=== PATIENT | female | born 1995 ===

== ENCOUNTER 2021-11-25 14:03 | Outpatient (CLI) | payer OTHER | END 2021-11-25 15:45 | disposition home or self-care (01) | LOC: PRENATAL 14:03 | PROVIDERS: ATTEND Obstetrics & Gynecology Maternal & Fetal Medicine | DX: O35.0XX0 Maternal care for (suspected) central nervous system malformation in fetus, not applicable or unspecified (principal); O35.3XX0 Maternal care for (suspected) damage to fetus from viral disease in mother, not applicable or unspecified; O10.019 Pre-existing essential hypertension complicating pregnancy, unspecified trimester; Z3A.19 19 weeks gestation of pregnancy ==

== ENCOUNTER 2021-12-15 12:34 | Inpatient (IN) | payer OTHER ==
[~2021-12-15] VITALS: Ht 160 cm; Wt 119.3 kg
[2021-12-16] MEDS ORDERED: TOPROL XL50 M1 (08:52)
[2021-12-16] MEDS ORDERED: ADULT LOW DOSE81 M1 (08:53)
[2021-12-16] MEDS ORDERED: NIFEDIPINE ER30 M1 (08:53)
== END 2021-12-17 12:27 | disposition home or self-care (01) | DRG 833 ==
LOC: OBS/DEL 12:34 → LDR 16:20 → OB/GYN 12-16 10:04
PROVIDERS: ADMIT Obstetrics & Gynecology; ATTEND Obstetrics & Gynecology
PROC: 4A1HXCZ Monitoring of Products of Conception, Cardiac Rate, External Approach (ICD-10-PCS; principal; 2021-12-15)
DX: O16.2 Unspecified maternal hypertension, second trimester (principal); Z3A.22 22 weeks gestation of pregnancy; Z20.822 Contact with and (suspected) exposure to COVID-19
CPT/HCPCS: 240

== ENCOUNTER 2022-01-23 14:12 | Outpatient (CLI) | payer OTHER ==
[~2022-01-23 14:12] MED LIST: ADULT LOW DOSE81 M1; NIFEDIPINE ER30 M1; TOPROL XL50 M1
== END 2022-01-23 15:20 | disposition home or self-care (01) ==
LOC: PRENATAL 14:12
PROVIDERS: ATTEND Obstetrics & Gynecology Maternal & Fetal Medicine
DX: O26.849 Uterine size-date discrepancy, unspecified trimester (principal); O10.019 Pre-existing essential hypertension complicating pregnancy, unspecified trimester; Z88.0 Allergy status to penicillin; Z91.013 Allergy to seafood

== ENCOUNTER 2022-02-23 15:06 | Outpatient (CLI) | payer OTHER | END 2022-02-23 16:20 | disposition home or self-care (01) | LOC: PRENATAL 15:06 | PROVIDERS: ATTEND Obstetrics & Gynecology Maternal & Fetal Medicine | DX: O26.849 Uterine size-date discrepancy, unspecified trimester (principal); O10.019 Pre-existing essential hypertension complicating pregnancy, unspecified trimester; Z88.0 Allergy status to penicillin; Z3A.32 32 weeks gestation of pregnancy ==

== ENCOUNTER 2022-03-27 11:42 | Inpatient (IN) | payer OTHER ==
[~2022-03-27] VITALS: Ht 160 cm; Wt 120.7 kg
[2022-03-28] MEDS ORDERED: HYDROCHLOROTHIA25 MG (08:56)
[2022-03-28] MEDS ORDERED: AMLODIPINE BESY10 MG (08:56)
[2022-04-02] MEDS ORDERED: TOPROL XL50 M1 PO (07:30)
[2022-04-02] MEDS ORDERED: NIFEDIPINE ER60 MG PO (07:30)
[2022-04-02] MEDS ORDERED: IBUPROFEN800 MG PO (07:30)
== END 2022-04-02 13:21 | disposition home or self-care (01) | DRG 787 ==
LOC: LDR 11:42 → OB/GYN 03-30 14:06
PROVIDERS: Student in an Organized Health Care Education/Training Program; ADMIT Obstetrics & Gynecology; ATTEND Obstetrics & Gynecology
PROC: 4A1HXCZ Monitoring of Products of Conception, Cardiac Rate, External Approach (ICD-10-PCS; 2022-03-28)
PROC: 3E0P7VZ Introduction of Hormone into Female Reproductive, Via Natural or Artificial Opening (ICD-10-PCS; 2022-03-29)
PROC: 3E033VJ Introduction of Other Hormone into Peripheral Vein, Percutaneous Approach (ICD-10-PCS; 2022-03-30)
PROC: 10D00Z1 Extraction of Products of Conception, Low, Open Approach (ICD-10-PCS; principal; 2022-03-30 08:15)
DX: O61.0 Failed medical induction of labor (principal); O16.3 Unspecified maternal hypertension, third trimester; Z3A.37 37 weeks gestation of pregnancy; Z37.0 Single live birth; Z20.822 Contact with and (suspected) exposure to COVID-19